=== PATIENT | male | born 1950 | race Caucasian/White ===

== ENCOUNTER 2020-04-13 08:45 | Emergency (ER) | payer MEDICARE, OTHER ==
[~2020-04-13] VITALS: Ht 182.9 cm; Wt 70.8 kg
[~2020-04-13 08:45] MED LIST: ? HTN MED; ASCO500; ASCO500 PO; ATEN25; BP MEDS; CEPH500 PO; CRUTCH USE; ESCI10 PO; HYDACE5 PO; HYDR1TAB94 PO; LOSARTAN POTAS100 MG; LOSARTAN POTAS100 MG PO; MECL25; METF500 PO; METO25ER; METO50 PO; MULVITMIND; Metoprolol Succ25 MG PO; NITR100CA; OCCUVITE PO; TERA5 PO; TRAM50; TRAM50 PO; WARF10 PO; WARF5; WARF5 PO; WARF6 PO; WARF7.5 PO; WARFARIN PO
[2020-04-13 10:07] LABS: BASOPHILS ABSOLUTE AUTO 0.04 K/mm3 (0.00-0.23); BASOPHILS PERCENT AUTO 0 % (0-2); EOSINOPHILS PERCENT AUTO 0 % (0-6); Hematocrit 35.8 % (37.0-53.0); Hemoglobin 12.3 g/dL (13.5-17.5); IMMATURE GRAN ABSOLUTE AUTO 0.06 K/mm3 (0.00-0.10); IMMATURE GRAN PERCENT AUTO 0 % (0-1); LYMPHOCYTES ABSOLUTE AUTO 1.48 K/mm3 (0.84-5.20); LYMPHOCYTES PERCENT AUTO 10 % (21-46); MONOCYTES ABSOLUTE AUTO 0.77 K/mm3 (0.16-1.47); MONOCYTES PERCENT AUTO 5 % (4-13); Mean Corpuscular HGB 32.5 pg (26.0-34.0); Mean Corpuscular HGB Conc 34.4 g/dL (31.5-36.5); Mean Corpuscular Volume 95 fL (80-100); Mean Platelet Volume 10.3 fL (9.1-12.4); NEUTROPHILS ABSOLUTE AUTO 13.08 K/mm3 (1.96-9.15); NEUTROPHILS PERCENT AUTO 85 % (41-73); Platelet Count 203 K/mm3 (150-400); RDW Coefficient Variation 12.7 % (11.7-14.2); RDW Standard Deviation 43.8 fL (35.1-46.3); Red Blood Cell Count 3.79 M/mm3 (4.30-5.90); White Blood Cell Count 15.43 K/mm3 (4.00-11.30)
[2020-04-13 10:29] LABS: Alanine Aminotransfer (ALT/SGP 27 U/L (12-78); Albumin, Blood 3.2 g/dL (3.4-5.0); Albumin/Globulin Ratio 0.9 (0.8-1.8); Alk Phos 81 U/L (50-136); Anion Gap 9 mmol/L (6-16); Aspartate Aminotrans (AST/SGOT 17 U/L (12-37); Bilirubin, Total 0.5 mg/dL (0.1-1.0); Blood Urea Nitrogen 23 mg/dL (8-24); Bun/Creatinine Ratio 22.5 (12.0-20.0); CO2, Blood 22 mmol/L (21-32); Calcium, Blood 8.6 mg/dL (8.5-10.1); Chloride, Blood 107 mmol/L (98-108); Creatinine, Blood 1.02 mg/dL (0.60-1.20); Globulin, Blood 3.4 g/dL (2.2-4.0); Glomerular Filtration Rate >60 (60-); Glucose, Blood 231 mg/dL (70-99); Potassium, Blood 3.9 mmol/L (3.5-5.5); Sodium, Blood 138 mmol/L (136-145); Total Protein, Blood 6.6 g/dL (6.4-8.2)
[2020-04-13 12:16] LABS: International Normalized Ratio 2.8; Prothrombin Time Results 28.3 Sec (9.7-11.5)
[2020-04-13] MEDS ORDERED: ALBU90OI INH (15:28)
[2020-04-13] MEDS ORDERED: Tessalon200 MG PO (15:28)
== END 2020-04-13 15:35 | disposition home or self-care (01) ==
LOC: ER 08:45
PROVIDERS: Physician Assistant
DX: S30.1XXA Contusion of abdominal wall, initial encounter (principal); E11.9 Type 2 diabetes mellitus without complications; J44.9 Chronic obstructive pulmonary disease, unspecified; I10 Essential (primary) hypertension; F17.210 Nicotine dependence, cigarettes, uncomplicated; Z79.01 Long term (current) use of anticoagulants; Z79.84 Long term (current) use of oral hypoglycemic drugs; Z88.8 Allergy status to other drugs, medicaments and biological substances; Z86.718 Personal history of other venous thrombosis and embolism; Z79.899 Other long term (current) drug therapy; X58.XXXA Exposure to other specified factors, initial encounter
CPT/HCPCS: 36415; 36430; 71046; 74177; 80053; 83690; 85025; 85610; 86900; 86901; 96374-59; 96375-59; 99284-25; J1170; J1885; J2405; J7030; P9059; Q9967

== ENCOUNTER 2024-06-14 15:52 | Emergency (ER) | payer MEDICARE, OTHER ==
[~2024-06-14] VITALS: Ht 182.9 cm; Wt 70.3 kg
[~2024-06-14 15:52] MED LIST changes: +ALBU90OI INH; +Tessalon200 MG PO
[2024-06-14 16:42] LABS: BASOPHILS ABSOLUTE AUTO 0.06 K/mm3 (0.00-0.23); BASOPHILS PERCENT AUTO 1 % (0-2); EOSINOPHILS ABSOLUTE AUTO 0.09 K/mm3 (0.00-0.68); EOSINOPHILS PERCENT AUTO 1 % (0-6); Hematocrit 46.3 % (37.0-53.0); Hemoglobin 15.4 g/dL (13.5-17.5); IMMATURE GRAN ABSOLUTE AUTO 0.04 K/mm3 (0.00-0.10); IMMATURE GRAN PERCENT AUTO 0 % (0-1); LYMPHOCYTES ABSOLUTE AUTO 3.08 K/mm3 (0.84-5.20); LYMPHOCYTES PERCENT AUTO 31 % (21-46); MONOCYTES ABSOLUTE AUTO 0.82 K/mm3 (0.16-1.47); MONOCYTES PERCENT AUTO 8 % (4-13); Mean Corpuscular HGB 31.8 pg (26.0-34.0); Mean Corpuscular HGB Conc 33.3 g/dL (31.5-36.5); Mean Corpuscular Volume 96 fL (80-100); Mean Platelet Volume 9.7 fL (9.1-12.4); NEUTROPHILS ABSOLUTE AUTO 5.92 K/mm3 (1.96-9.15); NEUTROPHILS PERCENT AUTO 59 % (41-73); Platelet Count 190 K/mm3 (150-400); RDW Coefficient Variation 12.9 % (11.7-14.2); RDW Standard Deviation 45.8 fL (35.1-46.3); Red Blood Cell Count 4.85 M/mm3 (4.30-5.90); White Blood Cell Count 10.01 K/mm3 (4.00-11.30)
[2024-06-14 16:56] LABS: International Normalized Ratio 2.53; Prothrombin Time Results 25.3 Sec (9.7-11.5)
[2024-06-14 17:12] LABS: Albumin, Blood 3.7 g/dL (3.4-5.0); Bilirubin, Total 0.9 mg/dL (0.1-1.0); Bun/Creatinine Ratio 22.3 (12.0-20.0); Calcium, Blood 9.5 mg/dL (8.5-10.1); Creatinine, Blood 0.81 mg/dL (0.60-1.20); Globulin, Blood 3.6 g/dL (2.2-4.0); Total Protein, Blood 7.3 g/dL (6.4-8.2)
[2024-06-14] MEDS ORDERED: Dexamethasone Sod Phos 10 MG/ML 1ML VIAL PO ONE (19:20)
[2024-06-14 19:30] VITALS: BP 160/147
== END 2024-06-14 19:47 | disposition home or self-care (01) ==
LOC: ER 15:52
PROVIDERS: Physician Assistant
DX: I10 Essential (primary) hypertension (principal); J44.9 Chronic obstructive pulmonary disease, unspecified; E11.9 Type 2 diabetes mellitus without complications; F17.210 Nicotine dependence, cigarettes, uncomplicated; Z79.84 Long term (current) use of oral hypoglycemic drugs; Z79.01 Long term (current) use of anticoagulants; Z79.899 Other long term (current) drug therapy; Z88.8 Allergy status to other drugs, medicaments and biological substances
CPT/HCPCS: 71046; 80053; 83690; 85025; 85610; 93005; 93010; 99284-25; J1100

== ENCOUNTER → 2024-10-22 | Day surgery (SDC) | payer MEDICARE, OTHER ==
[2024-10-22] VITALS (8 sets, daily range): BP systolic 115–152; BP diastolic 66–86
[~2024-10-22] VITALS: Ht 182.9 cm; Wt 73.5 kg
[~2024-10-22] MED LIST changes: +AMLO5 PO; +ASPI81CH PO; +Aspirin 325 MG Tab ONE; +CHLO25B PO; +CLOP75 PO; +Carvedilol12.5 MG PO; +Coumadin5 MG PO; +Crestor40 MG PO; +ELIQUIS5 M2 PO; +FentaNYL Citrate 50 MCG/ML 2 ML Injection ONE; +Heparin Sodium 1000 Units/ML 10ML MDV ONE; +MULTIVITAMIN; +Midazolam HCl 1MG / ML 2ML Vial ONE; +NS 1,000 ML IV ONE; +NS 250 ML IV ONE; +Nitroglycerin 2 MG/20 ML BTL ONE; +PIOG30 PO; +Ticagrelor 90 MG TABLET ONE; +Tirofiban HCL M-Hyd/NS 250 ML IV ONE; +Tirofiban HCL Monohydrate 3.75 MG/15 ML Vial ONE; +Verapamil HCL 2.5 MG/ML 2ML Injection ONE; +WARF2 PO
--- NOTE | 2024-10-22 13:16 | NUR ---
PT BACK FROM PROCEDURE TO RECOVERY ROOM. PT SITTING UP IN RECLINER. TR BAND TO R WRIST. NO BLEEDING OR HEMATOMA. PT ALERT, FAMILY TO BEDSIDE. DR SINGH AT BEDSIDE TO UPDATE PT AND FAMILY.
--- NOTE | 2024-10-22 13:32 | NUR ---
PT AMBULATES TO BR. PT REMINDED NOT TO USE R WRIST. PT RETURNS, NO BLEEDING OR HEMATOMA TO R WRIST. PT GIVEN SNACKS AND DIET PEPSI PER REQUEST
--- NOTE | 2024-10-22 14:56 | NUR ---
BEGAN DEFLATING TR BAND. NO BLEEDING OR HEMATOMA NOTED.
--- NOTE | 2024-10-22 15:22 | NUR ---
TR BAND FULLY DEFLATED.
--- NOTE | 2024-10-22 16:32 | NUR ---
PT AND FAMILY VERBALIZE D/C INSTRUCTIONS. DAUGHTER WENT TO BUFFER NICKEL MEDICATIONS FROM PHARMACY. PT DEMONSTRATES CORRECT RIGHT RADIAL PRECAUTIONS. PT DRESSED AND TR BAND REMOVED AND CLOTH DOT PLACED. NO BLEEDING OR HEMATOMA NOTED. IV D/C CATHETER INTACT.
--- NOTE | 2024-10-22 16:34 | NUR ---
PT WHEELED OUT OF HOSPITAL TO DAUGHTERS CAR. D/C INSTRUCTIONS IN HAND.
== END ==
LOC: MHTC 07:46
DX: I25.10 Atherosclerotic heart disease of native coronary artery without angina pectoris (principal); J44.9 Chronic obstructive pulmonary disease, unspecified; E11.9 Type 2 diabetes mellitus without complications; I48.0 Paroxysmal atrial fibrillation; I10 Essential (primary) hypertension; E78.5 Hyperlipidemia, unspecified; Z79.84 Long term (current) use of oral hypoglycemic drugs; Z79.01 Long term (current) use of anticoagulants; Z88.8 Allergy status to other drugs, medicaments and biological substances
CPT/HCPCS: 76937; 85347; 92920; 92978; 93454; 93571; 99152; 99153; A9270; C1725; C1753; C1769; C1874; C1887; C1894; C9600; J1644; J2250; J3010; J3246; J7030; J7050; Q9967